=== PATIENT | male | born 1975 | race Hispanic/Latino ===

== ENCOUNTER 2018-08-26 02:42 | Emergency (ER) | payer OTHER, BC ==
[2018-08-26 02:54] VITALS: BMI 33.5
[2018-08-26 03:01] VITALS: TEMP 98.7; O2SAT 98
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
[2018-08-26] MEDS ORDERED: Lidocaine PF 2% (5 ml) Inj (For Cardiac Arrhy) ONE (04:47)
[2018-08-26] MEDS ORDERED: TDAP Vaccine 0.5 mL Syr IM ONE (05:41)
[2018-08-26 07:43] VITALS: BP 136/78; PULSE 88; RESP 20
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
== END 2018-08-26 06:01 | disposition home or self-care (01) ==
LOC: ED 02:42 → MERGE 02:42 → ED 06:01
DX: S01.112A Laceration without foreign body of left eyelid and periocular area, initial encounter (principal); V49.49XA Driver injured in collision with other motor vehicles in traffic accident, initial encounter; Y92.410 Unspecified street and highway as the place of occurrence of the external cause; Z23 Encounter for immunization

== ENCOUNTER 2018-09-04 13:37 | Emergency (ER) | payer OTHER, BC ==
[2018-09-04 13:38] VITALS: BMI 33.5
[2018-09-04 13:46] VITALS: BP 124/85
--- NOTE | 2018-09-04 14:01 | ED PDOC ---
Arrival/HPI - General Historian: Patient - History of Present Illness Narrative History of Present Illness (Text): 09/04/18 14:05 43 year old male with no pertinent past medical history presents to hospital for removal of sutures .Patient reports keeping them dry and covered. Patient denies any erythema, pain, eye discharge, fevers, chills, or any other complaints. PMD: Denies Time/Duration: 1 week Symptom Onset: Gradual Symptom Course: Unchanged Severity Level: 1 Activities at Onset: Rest Context: Sitting <Kg Florez - Last Filed: 09/04/18 18:10> Past Medical History - Provider Review Nursing Documentation Reviewed: Yes - Psychiatric Hx Substance Use: No - Surgical History Other/Comment: eye sx - Anesthesia Hx Anesthesia: Yes Hx Anesthesia Reactions: No Hx Malignant Hyperthermia: No <Kg Florez - Last Filed: 09/04/18 18:10> Family/Social History - Physician Review Nursing Documentation Reviewed: Yes Family/Social History: No Known Family HX Smoking Status: Never Smoked Hx Alcohol Use: No Hx Substance Use: No <Kg Florez - Last Filed: 09/04/18 18:10> Allergies/Home Meds <Kg Florez - Last Filed: 09/04/18 18:10> <Leo Kern DO - Last Filed: 09/05/18 10:48> Allergies/Adverse Reactions: Allergies mold Allergy (Verified 09/04/18 13:46) RASH Home Medications: Home Meds Medication Instructions Recorded Confirmed No Known Home Med 08/26/18 09/04/18 Review of Systems - Physician Review All systems were reviewed & negative as marked: Yes - Review of Systems Constitutional: Normal. absent: Fatigue, Weight Change Eyes: Normal. absent: Vision Changes, Photophobia ENT: Normal. absent: Hearing Changes, Tinnitus Respiratory: Normal. absent: SOB, Cough Cardiovascular: Normal. absent: Chest Pain, Palpitations Gastrointestinal: Normal. absent: Abdominal Pain, Stool Changes Genitourinary Male: Normal. absent: Frequency Musculoskeletal: Normal. absent: Arthralgias, Back Pain Skin: Normal. absent: Rash, Pruritis Neurological: Normal. absent: Headache, Dizziness Endocrine: Normal. absent: Diaphoresis, Polyuria Hemo/Lymphatic: Normal. absent: Adenopathy, Easy Bleeding Psychiatric: Normal. absent: Anxiety, Depression <Kg Florez - Last Filed: 09/04/18 18:10> Physical Exam Vital Signs Reviewed: No Mental Status: Positive for: Alert and Oriented X 3. No: Confused, Agitated - Systems Exam Head: Present: Atraumatic, Normocephalic. No: Abrasion Pupils: Present: PERRL. No: Sluggish Extroacular Muscles: Present: EOMI. No: Gaze Palsy Conjunctiva: Present: Normal. No: Injected Mouth: Present: Moist Mucous Membranes. No: Dry, Normal Teeth Neck: Present: Normal Range of Motion. No: Meningeal Signs, JVD Respiratory/Chest: Present: Clear to Auscultation, Good Air Exchange. No: Wheezes Cardiovascular: Present: Regular Rate and Rhythm, Normal S1, S2. No: Tachycardic Abdomen: Present: Normal Bowel Sounds. No: Tenderness, Distention, Guarding Upper Extremity: Present: Normal Inspection. No: Cyanosis, Edema Lower Extremity: Present: Normal Inspection. No: Edema Neurological: Present: CN II-XII Intact, Speech Normal. No: Normal Cerebellar Funct Skin: Present: Dry, Normal Color, Laceration (Over the right eyelid. Healing) Psychiatric: Present: Alert, Oriented x 3, Normal Insight <Kg Florez - Last Filed: 09/04/18 18:10> Vital Signs Temp Pulse Resp BP Pulse Ox 09/04/18 14:14 98.3 F 93 H 18 98 09/04/18 13:42 98.2 F 92 H 19 124/85 99 <Leo Kern DO - Last Filed: 09/05/18 10:48> Medical Decision Making ED Course and Treatment: 09/04/18 14:09 43 year old with no pertinent medical history who presents for suture removal. Plan: Suture removal 7 Sutures Removed Patient tolerated without any complaints. <Kg Florez - Last Filed: 09/04/18 18:10> ED Course and Treatment: 09/04/18 14:16 Armando Harris is a 43 year old male with no significant past medical history presents to the emergency department for removal of sutures. In agreement with residents note, which includes further HPI details. Patient was seen and evaluated with resident, came up with plan and treatment together. <Leo Kern DO - Last Filed: 09/05/18 10:48> - PA / HOD CARRIER / Resident Statement EDDIE has reviewed & agrees with the documentation as recorded. EDDIE has examined the patient and agrees with the treatment plan. <Leo Kern DO - Last Filed: 09/05/18 10:48> Disposition/Present on Arrival - Present on Arrival Any Indicators Present on Arrival: No History of DVT/PE: No History of Uncontrolled Diabetes: No Urinary Catheter: No History Surgical Site Infection Following: None - Disposition Have Diagnosis and Disposition been Completed?: Yes Disposition Time: 14:10 Patient Plan: Discharge <Kg Florez - Last Filed: 09/04/18 18:10> - Disposition Disposition Time: 14:00 <Leo Kern DO - Last Filed: 09/05/18 10:48> - Disposition Diagnosis: Visit for suture removal Disposition: HOME/ ROUTINE Condition: GOOD Discharge Instructions (ExitCare): Stitches Removal Additional Instructions: 1.F/u with PMD within 2 days. 2. Return to hospital for any new or worsening symptoms. Referrals: [facility], [Non-Staff] - Follow up with primary Forms: [employer] (Azeri)
[2018-09-04 14:18] VITALS: PULSE 93; RESP 18; TEMP 98.3; O2SAT 98
== END 2018-09-04 14:17 | disposition home or self-care (01) ==
LOC: ED 13:37
DX: Z48.02 Encounter for removal of sutures (principal)